=== PATIENT | female | born 1965 ===

== ENCOUNTER 2017-12-16 14:20 | Emergency (ER) | payer MEDICAID ==
[2017-12-16 14:20] VITALS: BMI 25.9
[2017-12-16 14:43] VITALS: BP 168/92; PULSE 78; RESP 16; TEMP 97.7; O2SAT 98
--- NOTE | 2017-12-16 16:20 | C.PDOC ---
History Of Present Illness 52 y/o female presents to the ER complaining of left shoulder pain which has been present for 1 year. Patient states that she has painful ROM with hot showers and Tylenol. She is also undergoing some type of ant-inflammatory therapy and pending f/u with rheumatology. Patient denies using ice therapy. Patient has a history of rheumatoid arthritis. Of note, patient had a normal head CT and C-Spine. Time Seen by Provider: 12/16/17 15:39 Chief Complaint (Nursing): Upper Extremity Problem/Injury History Per: Patient History/Exam Limitations: no limitations Onset/Duration Of Symptoms: Days Current Symptoms Are (Timing): Still Present Severity: Moderate Past Medical History Reviewed: Historical Data, Nursing Documentation, Vital Signs Vital Signs: Last Vital Signs Temp 97.7 F 12/16/17 14:40 Pulse 78 12/16/17 14:40 Resp 16 12/16/17 14:40 BP 168/92 H 12/16/17 14:40 Pulse Ox 98 12/16/17 16:35 - Medical History PMH: Anemia, Anxiety, Arthritis, Asthma, Back Problems, Depression, HTN, Rheumatoid Arthritis Denies: Chronic Kidney Disease Surgical History: - [facility] Procedures ANESTH INJECT-SPIN CANAL (05/29/15) INJECT STEROID (05/29/15) LUMBOSAC SPINE X-RAY NEC (05/29/15) PERCUTAN NEEDLE BIOPSY OF BREAST (08/07/05) PHYSICAL THERAPY NEC (04/04/15) SPINAL CANAL INJECT NEC (05/29/15) Family History: States: No Known Family Hx - Social History Hx Alcohol Use: No Hx Substance Use: No - Immunization History Hx Tetanus Toxoid Vaccination: No Hx Influenza Vaccination: No Hx Pneumococcal Vaccination: No Review Of Systems Except As Marked, All Systems Reviewed And Found Negative. Musculoskeletal: Positive for: Shoulder Pain (left shoulder pain) Physical Exam - Physical Exam Appears: Non-toxic, No Acute Distress Skin: Normal Color, Warm Head: Atraumatic, Normacephalic Eye(s): bilateral: Normal Inspection Nose: Normal Oral Mucosa: Moist Neck: Supple Chest: Symmetrical Cardiovascular: Rhythm Regular Respiratory: Normal Breath Sounds, No Accessory Muscle Use, No Rales, No Rhonchi , No Wheezing Extremity: Tenderness (tenderness to left posterior trapezius area and left posterior shoulder) Neurological/Psych: Oriented x3, Normal Speech, Normal Motor, Normal Sensation ED Course And Treatment O2 Sat by Pulse Oximetry: 98 Medical Decision Making Medical Decision Making: pain and tenderness L posterior shoulder, h/o arthritis but normal L shoulder films 2014, no traumas ROM painful with heat therapies and Tylenol NSAIDS increased to Motrin/ice therapy and f/u wtih Rheum consider MRI C-spine Disposition Doctor Will See Patient In The: Office Counseled Patient/Family Regarding: Studies Performed, Diagnosis - Disposition Referrals: [facility] [Outside] Disposition: HOME/ ROUTINE Disposition Time: 16:20 Condition: GOOD Additional Instructions: continue ICE therapy to L shoulder 1/2 hour per hour, nothing hot. Motrin 400-600 mg every 6 hours as needed NO MORE HEAT THERPIES- THIS MAKES ALL INFLAMMATION WORSE! Follow-up w your [employer] as scheduled- consider MRI Cervical spine if pain sydrome derived from C-Spine. Instructions: Shoulder Sprain (ED), Arthralgia (ED) Forms: [email or web address] ([place]ian) - Clinical Impression Clinical Impression: Chronic left shoulder pain
== END 2017-12-16 16:48 | disposition home or self-care (01) ==
LOC: C.ER 14:20
DX: G89.29 Other chronic pain (principal); M25.512 Pain in left shoulder